=== PATIENT | female | born 1975 | race Two or more races ===

== ENCOUNTER 2017-03-21 10:17 | Inpatient (IN) | payer MEDICAID, OTHER ==
[~2017-03-21] VITALS: Ht 174 cm; Wt 114.4 kg
[~2017-03-21 10:17] MED LIST: ALBU18; HYDR12.56 PO; METO25TA5 PO
[2017-03-21] MEDS ORDERED: PRE5T PO (10:34)
[2017-03-21] MEDS ORDERED: ALPR0.5T7 PO (10:35)
[2017-03-21] MEDS ORDERED: SODIUM CHLORIDE 0.9% 1,000 ML IV ONE (10:43)
[2017-03-21] MEDS ORDERED: ASPI325T4 PO (10:50)
[2017-03-21 11:14] LABS: Basophils # (auto) 0 uL; Basophils % (auto) 0.4 % (0.0-2.0); CONDITION Y; Eosinophils # (auto) 0.1 uL; Eosinophils % (auto) 1.7 % (0.0-7.0); Hematocrit 39.4 % (36.0-46.0); Hemoglobin 13.7 g/dL (12.2-16.2); Lymphocytes # (auto) 2.1 uL; Lymphocytes % (auto) 34.9 % (10.0-50.0); Mean Corpuscular Hemoglobin 28.9 pg (28.0-32.0); Mean Corpuscular Hgb Conc. 34.7 g/dL (32.0-36.0); Mean Corpuscular Volume 83.2 fL (80.0-100.0); Mean Platelet Volume 7.9 fL (7.4-10.4); Monocytes # (auto) 0.4 uL; Monocytes % (auto) 6.3 % (0.0-12.0); Neutrophils # (auto) 3.4 uL; Neutrophils % (auto) 56.7 % (37.0-80.0); Platelet Count (auto) 234 10^3/uL (140-450); Red Cell Distribution Width 14.5 % (11.6-16.0)
[2017-03-21 11:28] LABS: Albumin 3.6 g/dL (3.4-5.0); Anion Gap 6 (5-15); Aspartate Aminotransferase 26 U/L (15-37); BUN/Creatinine Ratio 17.2; Blood Urea Nitrogen 11 mg/dL (7-18); Calcium 8.2 mg/dL (8.5-10.1); Carbon Dioxide 23 mmol/L (21-32); Chloride 110 mmol/L (98-107); GFR African American 132 mL/min; GFR Non-African American 109 mL/min; Glucose 84 mg/dL (74-106); Potassium 3.7 mmol/L (3.5-5.1); Sodium 139 mmol/L (136-145)
[2017-03-21] MEDS ORDERED: ASPirin 81 mg TAB PO ONE (11:30)
[2017-03-21 11:41] LABS: Alkaline Phosphatase 70 U/L (45-117); Bilirubin, Total 0.6 mg/dL (0.2-1.0); Total Protein 7.4 g/dL (6.4-8.2)
[2017-03-21] MEDS ORDERED: MORPHINE SULF INJ 2 MG/ML SYRINGE 1ML IV PRN ×2 (12:45)
[2017-03-21] MEDS ORDERED: NITROGLYCERIN 0.4 MG SL TAB SL PRN (12:45)
[2017-03-21] MEDS ORDERED: cloNIDine HCL 0.1 MG TAB PO PRN (12:45)
[2017-03-21] MEDS ORDERED: ACETAMINOPHEN 325 MG TAB PO PRN (12:45)
[2017-03-21] MEDS ORDERED: ONDANSETRON HCL 4 MG/2 ML VIAL IV PRN (12:45)
[2017-03-21] MEDS ORDERED: DOCUSATE SOD 100 MG CAP PO PRN (12:45)
[2017-03-21] MEDS ORDERED: DIPHENOXYLATE W/ATROPINE 2.5 MG TAB PO PRN (12:45)
[2017-03-21] MEDS ORDERED: TEMAZEPAM 15 MG CAP PO PRN (12:45)
[2017-03-21] MEDS ORDERED: ALPRAZolam 0.5 MG TAB PO PRN (12:45)
[2017-03-21] MEDS ORDERED: predniSONE 20 MG TAB PO ONE (13:00)
[2017-03-21] MEDS ORDERED: HCTZ 25 MG TAB PO ONE (13:00)
[2017-03-21] MEDS ORDERED: METOPROLOL SUCCINATE XL 50 MG TAB PO ONE (13:00)
[2017-03-21] MEDS: ENOXAPARIN SOD 40 MG/0.4 ML SYRINGE SC SCH (13:03)
[2017-03-21] MEDS: FAMOTIDINE 20 MG TAB PO SCH ×2 (13:03→22:23)
[2017-03-21] MEDS: MULTIPLE VITAMIN TAB PO SCH (13:04)
[2017-03-21] MEDS: SODIUM CHLOR 0.9% PF (SALINE LOCK) 10ML VIAL IV SCH ×2 (14:00→22:23)
[2017-03-21 14:34] LABS: Urine Bilirubin Negative (Negative); Urine Blood TRACE /uL (Negative); Urine Color Yellow (Yellow); Urine Glucose Normal (Normal); Urine Ketone Negative (Negative); Urine Mucus FEW (None Seen); Urine Nitrite Negative (Negative); Urine RBC <1 /hpf (0 - 4); Urine Squamous Epithelial Cell FEW /hpf (<5); Urine Urobilinogen Normal (Negative)
[2017-03-21 15:07] VITALS: BP 127/83
[2017-03-21] MEDS: HYDROcodone-ACET 5/325MG TAB PO PRN (15:21)
[2017-03-21] MEDS ORDERED: IOHEXOL 350 MG/ML 100ML IJ ONE (16:06)
[2017-03-21 16:46] LABS: Cholesterol 152 mg/dL (< 200); HDL Cholesterol 42 mg/dL (40-59); LDL Cholesterol 94 mg/dL (< 100); Triglycerides 112 mg/dL (< 150)
[2017-03-21 16:51] VITALS: BP 115/63
[2017-03-21] MEDS: ALBUTEROL SULF 2.5 MG/0.5ML(0.5%) NEB SOLN NEB SCH (18:35)
[2017-03-21 21:30] VITALS: BP 108/72
[2017-03-21] MEDS ORDERED: ATORVASTATIN 20 MG TAB PO SCH (22:00)
[2017-03-22] MEDS: HYDROcodone-ACET 5/325MG TAB PO PRN ×2 (04:53→11:49)
[2017-03-22 05:09] VITALS: BP 101/61
[2017-03-22] MEDS: SODIUM CHLOR 0.9% PF (SALINE LOCK) 10ML VIAL IV SCH ×3 (05:30→21:20)
[2017-03-22 06:06] LABS: Thyroxine (T4) 9.6 ug/dL (4.5-12.0)
[2017-03-22] MEDS: ALBUTEROL SULF 2.5 MG/0.5ML(0.5%) NEB SOLN NEB SCH ×4 (06:35→19:08)
[2017-03-22 07:10] LABS: Basophils # (auto) 0.1 uL; Basophils % (auto) 1.1 % (0.0-2.0); CONDITION Y; Eosinophils # (auto) 0.1 uL; Eosinophils % (auto) 1.9 % (0.0-7.0); Hematocrit 40.2 % (36.0-46.0); Hemoglobin 13.5 g/dL (12.2-16.2); Lymphocytes # (auto) 1.6 uL; Lymphocytes % (auto) 31.2 % (10.0-50.0); Mean Corpuscular Hgb Conc. 33.7 g/dL (32.0-36.0); Mean Corpuscular Volume 83.3 fL (80.0-100.0); Mean Platelet Volume 8.5 fL (7.4-10.4); Monocytes # (auto) 0.4 uL; Monocytes % (auto) 7.2 % (0.0-12.0); Neutrophils % (auto) 58.6 % (37.0-80.0); Platelet Count (auto) 233 10^3/uL (140-450); White Blood Cell 5.1 10^3/uL (4.4-10.8)
[2017-03-22 07:27] LABS: Albumin 3.6 g/dL (3.4-5.0); BUN/Creatinine Ratio 17.1; Bilirubin, Total 0.7 mg/dL (0.2-1.0); Calcium 8.5 mg/dL (8.5-10.1); Potassium 3.7 mmol/L (3.5-5.1); Total Protein 7.3 g/dL (6.4-8.2)
[2017-03-22] MEDS: ENOXAPARIN SOD 40 MG/0.4 ML SYRINGE SC SCH (09:20)
[2017-03-22] MEDS: predniSONE 20 MG TAB PO SCH (09:21)
[2017-03-22] MEDS: ASPirin-EC 325mg tab PO SCH (09:21)
[2017-03-22] MEDS: MULTIPLE VITAMIN TAB PO SCH (09:21)
[2017-03-22] MEDS: HCTZ 25 MG TAB PO SCH (09:22)
[2017-03-22] MEDS: FAMOTIDINE 20 MG TAB PO SCH ×2 (09:23→21:20)
[2017-03-22] MEDS: METOPROLOL SUCCINATE XL 50 MG TAB PO SCH (09:24)
[2017-03-22 09:48] VITALS: BP 112/60
[2017-03-22] MEDS ORDERED: ASPirin-EC 81 mg tab PO SCH (10:00)
[2017-03-22 13:02] VITALS: BP 114/72
[2017-03-22 16:05] VITALS: BP 112/72
[2017-03-22 21:33] VITALS: BP 104/62
[2017-03-22] MEDS ORDERED: ATORVASTATIN 20 MG TAB PO SCH (22:00)
[2017-03-23 05:32] VITALS: BP 109/61
[2017-03-23] MEDS: SODIUM CHLOR 0.9% PF (SALINE LOCK) 10ML VIAL IV SCH ×2 (05:45→14:00)
[2017-03-23] MEDS: ALBUTEROL SULF 2.5 MG/0.5ML(0.5%) NEB SOLN NEB SCH ×2 (06:14→11:46)
[2017-03-23 08:02] VITALS: BP 109/61
[2017-03-23] MEDS: HYDROcodone-ACET 5/325MG TAB PO PRN (08:53)
[2017-03-23 09:00] VITALS: BP 107/59
[2017-03-23] MEDS: ENOXAPARIN SOD 40 MG/0.4 ML SYRINGE SC SCH (09:15)
[2017-03-23] MEDS: ASPirin-EC 325mg tab PO SCH (09:15)
[2017-03-23] MEDS: HCTZ 25 MG TAB PO SCH (09:16)
[2017-03-23] MEDS: predniSONE 20 MG TAB PO SCH ×2 (09:16→10:00)
[2017-03-23] MEDS: METOPROLOL SUCCINATE XL 50 MG TAB PO SCH (09:17)
[2017-03-23] MEDS: MULTIPLE VITAMIN TAB PO SCH (09:17)
[2017-03-23] MEDS: FAMOTIDINE 20 MG TAB PO SCH (09:18)
[2017-03-23 13:00] VITALS: BP 97/59
== END 2017-03-23 16:30 | disposition home or self-care (01) | DRG 47 ==
LOC: ER 10:17 → TELE 10:18 → TELE-E-ADS 13:47 → TELE-EAST 15:02
PROVIDERS: ADMIT Internal Medicine; ATTEND Internal Medicine
DX: G45.9 Transient cerebral ischemic attack, unspecified (principal); I11.9 Hypertensive heart disease without heart failure; G81.90 Hemiplegia, unspecified affecting unspecified side; E83.51 Hypocalcemia; F41.9 Anxiety disorder, unspecified; E78.5 Hyperlipidemia, unspecified; E03.9 Hypothyroidism, unspecified; G43.909 Migraine, unspecified, not intractable, without status migrainosus; Z82.3 Family history of stroke; Z83.3 Family history of diabetes mellitus; Z86.73 Personal history of transient ischemic attack (TIA), and cerebral infarction without residual deficits; Z91.14 Patient's other noncompliance with medication regimen
CPT/HCPCS: 36415; 70450; 70496; 70498; 70551; 71010; 80053; 80061; 81001; 83036; 83735; 84443; 84484; 85025; 92610; 93005; 93306; 93886; 94640; 94761; 96360; J2405

== ENCOUNTER 2018-07-03 18:05 | Emergency (ER) | payer MEDICAID, OTHER ==
[~2018-07-03] VITALS: Ht 170.2 cm; Wt 115.7 kg
[~2018-07-03 18:05] MED LIST changes: +ALPR0.5T7 PO; +ASPI325T4 PO; +PRE5T PO
[2018-07-03 18:14] VITALS: BP 140/85
[2018-07-03 19:09] LABS: Basophils # (auto) 0.1 uL; Basophils % (auto) 0.9 % (0.0-2.0); Eosinophils # (auto) 0.2 uL; Eosinophils % (auto) 2.6 % (0.0-7.0); Hematocrit 37.6 % (36.0-46.0); Hemoglobin 12.9 g/dL (12.2-16.2); Lymphocytes # (auto) 1.9 uL; Lymphocytes % (auto) 28.4 % (10.0-50.0); Mean Corpuscular Hemoglobin 28.6 pg (28.0-32.0); Mean Corpuscular Hgb Conc. 34.4 g/dL (32.0-36.0); Mean Corpuscular Volume 83.1 fL (80.0-100.0); Monocytes # (auto) 0.4 uL; Neutrophils # (auto) 4.1 uL; Neutrophils % (auto) 62.1 % (37.0-80.0); Nucleated Red Blood Cells % 0.1 %; Platelet Count (auto) 235 10^3/uL (140-450); Red Blood Cells 4.53 10^6/uL (4.0-5.20); Red Cell Distribution Width 13.8 % (11.8-14.3); White Blood Cell 6.6 10^3/uL (4.4-10.8)
[2018-07-03 19:19] LABS: Alanine Aminotransferase 32 U/L (13-56); Albumin 3.7 g/dL (3.4-5.0); Alkaline Phosphatase 85 U/L (45-117); Anion Gap 4 (5-15); Aspartate Aminotransferase 19 U/L (15-37); BUN/Creatinine Ratio 14.5; Bilirubin, Total 0.7 mg/dL (0.2-1.0); Blood Urea Nitrogen 11 mg/dL (7-18); Calcium 8.5 mg/dL (8.5-10.1); Carbon Dioxide 28 mmol/L (21-32); Chloride 107 mmol/L (98-107); GFR African American 108 mL/min; GFR Non-African American 89 mL/min; Glucose 104 mg/dL (74-106); Potassium 3.8 mmol/L (3.5-5.1); Sodium 139 mmol/L (136-145); Total Protein 7.6 g/dL (6.4-8.2)
== END 2018-07-03 20:15 | disposition home or self-care (01) ==
LOC: ER 18:05
DX: R42 Dizziness and giddiness (principal); J45.909 Unspecified asthma, uncomplicated; I10 Essential (primary) hypertension; Z90.49 Acquired absence of other specified parts of digestive tract; Z86.73 Personal history of transient ischemic attack (TIA), and cerebral infarction without residual deficits; Z79.82 Long term (current) use of aspirin; Z79.899 Other long term (current) drug therapy
CPT/HCPCS: 36415; 70450; 80053; 83735; 84484; 85025; 93005